=== PATIENT | male | born 1990 ===

== ENCOUNTER 2021-06-16 03:19 | Emergency (ER) | payer SELFPAY ==
[2021-06-16] MEDS ORDERED: Lidocaine 1% 30 ML SDV INJECT ONE (03:33)
[2021-06-16] MEDS ORDERED: Diphtheria,Pertussis(Acell),Tetanus Vaccine 0.5 ML Syringe IM ONE (03:33)
[2021-06-16] MEDS ORDERED: Bacitracin Oint 1 GM U/D Packet TOP ONE (03:38)
--- NOTE | 2021-06-16 04:09 | EDM.PDOC ---
ED HPI GENERAL MEDICAL PROBLEM - General Stated Complaint: CUT ON LEFT HAND Time Seen by Provider: 06/16/21 03:45 Source of Information: Reports: Patient, RN, RN Notes Reviewed History Limitations: Reports: No Limitations - History of Present Illness INITIAL COMMENTS - FREE TEXT/NARRATIVE: Milton is a 30 y/o male who presents to the ED via personal vehicle with complaints of laceration to his left hand. The patient reports he sustained the injury to his left anterior hand approximately one hour prior to his arrival to this facility while picking up a boat propeller. He denies loss of motor of sen camron function to the extremity. He has not taken any medications for this injury. The patient notes his last TDaP vaccine was in 2012. Left Hand Pain Score (Numeric/FACES): 3 - Related Data Allergies Allergy/AdvReac Type Severity Reaction Status Date / Time No Known Allergies Allergy Verified 06/16/21 03:40 Home Meds: Home Meds Dupilumab [Dupixent Pen] 300 mg SQ .Q2WKS 06/16/21 [History] Past Medical History Dermatologic History: Reports: Eczema - Past Surgical History Male Surgical History: Reports: Vasectomy Musculoskeletal Surgical History: Reports: Other (See Below) Other Musculoskeletal Surgeries/Procedures:: rt arm fx repair Social & Family History - Tobacco Use Tobacco Use Status *Q: Never Tobacco User Second Hand Smoke Exposure: No - Caffeine Use Caffeine Use: Reports: Coffee, Soda - Recreational Drug Use Recreational Drug Use: No Review of Systems - Review of Systems Review Of Systems: Comprehensive ROS is negative, except as noted in HPI. ED EXAM, GENERAL - Physical Exam Exam: See Below Exam Limited By: No Limitations General Appearance: Alert, No Apparent Distress Eye Exam: Bilateral Eye: EOMI, Normal Inspection, PERRL (3mm) Ears: Normal External Exam, Hearing Grossly Normal Nose: Normal Inspection, Normal Mucosa, No Blood Throat/Mouth: Normal Inspection, Normal Oropharynx, Normal Voice, No Airway Compromise Head: Atraumatic, Normocephalic Neck: Normal Inspection, Supple, Non-Tender, Full Range of Motion Respiratory/Chest: No Respiratory Distress, Lungs Clear, Normal Breath Sounds, No Accessory Muscle Use, Chest Non-Tender Cardiovascular: Normal Peripheral Pulses, Regular Rate, Rhythm, No Edema, No Gallop, No JVD, No Murmur, No Rub Peripheral Pulses: 2+: Radial (L), Radial (R) GI/Abdominal: Normal Bowel Sounds, Soft, Non-Tender (Male) Exam: Deferred Rectal (Males) Exam: Deferred Back Exam: Normal Inspection, Full Range of Motion Extremities: Normal Range of Motion, Normal Capillary Refill, Arm Pain (2cm laceration to left anterior hand). No: Increased Warmth, Mottled, Pallor, Redness Neurological: Alert, Oriented, CN II-XII Intact, Normal Cognition, Normal Gait, No Motor/Sensory Deficits Psychiatric: Normal Affect, Normal Mood Skin Exam: Warm, Dry, Normal Color, No Rash, Wound/Incision (2cm laceration to left anterior hand). No: Cyanosis, Ecchymosis, Erythema, Jaundice, Mottled, Pallor, Petechiae ED TRAUMA EXTREMITY PROCEDURES - Laceration/Wound Repair Left Anterior Medial Hand Lac/Wound Length In cm: 2 Appearance: Subcutaneous, Linear, Clean Distal NVT: Neuro & Vascular Intact, No Tendon Injury Anesthetic Type: Local Local Anesthesia - Lidocaine (Xylocaine): 1% Plain Local Anesthetic Volume: 5cc Skin Prep: Chlorhexidine (Hibiciens), Sterile Drape Exploration/Debridement/Repair: Wound Explored, In a Bloodless Field, Explored to Base, No Foreign Material Found, Wound Margins Revised Closed With: Sutures Suture Size: 4-0 # of Sutures: 5 Suture Type: Prolene Drain Placement: No Sterile Dressing Applied: Nurse Tetanus Status Addressed: Yes Complications: Yes Course - Vital Signs Last Recorded V/S: Last Vital Signs Temp 97.2 F 06/16/21 03:40 Pulse 88 06/16/21 03:40 Resp 18 06/16/21 03:40 BP 143/83 H 06/16/21 03:40 Pulse Ox 98 06/16/21 03:40 - Orders/Labs/Meds Orders: Active Orders 24 hr Category Date Time Status Vaccines to be Administered [RC] PER UNIT ROUTINE Care 06/16/21 03:33 Ordered Meds: Medications Discontinued Medications Generic Name Dose Route Start Last Admin Trade Name Freq PRN Reason Stop Dose Admin Bacitracin 1 dose 06/16/21 03:38 06/16/21 03:47 Bacitracin Oint 1 Gm U/D Packet TOP 06/16/21 03:39 1 dose ONETIME ONE Administration Diphtheria/Tetanus/Acell Pertussis 0.5 ml 06/16/21 03:33 06/16/21 03:41 Diphtheria,Pertussis(Acell),Tetanus Vaccine 0.5 Ml Syringe IM 06/16/21 03:34 0.5 ml .ONCE ONE Administration Lidocaine HCl 30 ml 06/16/21 03:33 06/16/21 03:41 Lidocaine 1% 30 Ml Sdv INJECT 06/16/21 03:34 5 ml ONETIME ONE Administration - Re-Assessments/Exams Free Text/Narrative Re-Assessment/Exam: 06/16/21 Laceration repaired without complication. Boostrix administered. Findings of examination reviewed with patient. Discussed supportive cares for wound healing. Patient instructed to follow up with primary care provider in [place] days for suture removal. Red flag signs and symptoms which would warrant reevaluation reviewed. Patient verbalized understanding and agreement with the plan of care. Departure - Departure Time of Disposition: 04:09 Disposition: Home, Self-Care 01 Condition: Good Clinical Impression: Laceration of left hand Qualifiers: Encounter type: initial encounter Foreign body presence: without foreign body Qualified Code(s): S61.412A - Laceration without foreign body of left hand, initial encounter - Discharge Information *PRESCRIPTION DRUG MONITORING PROGRAM REVIEWED*: Not Applicable *COPY OF PRESCRIPTION DRUG MONITORING REPORT IN PATIENT KIERA: Not Applicable Instructions: Laceration Care, Adult, [place] Forms: ED Department Discharge Additional Instructions: 1.) Follow up with your primary care provider for suture removal in seven days. 2.) Keep wound clean and dry. 3.) You may take ibuprofen (Advil/Motrin) 400mg every six hours, as pain and swelling persists. You may also take acetaminophen (Tylenol) 650mg every six hours, as pain persists. You may stagger these medications so you are receiving a dose every three hours. 4.) You may apply ice to the affected area, as swelling persists; 20 minutes on every hour. 5.) Follow up with primary care provider, or return to the emergency department, with any fever, shaking chills, palpitations, increased redness or pain, or white/oconnor wound drainage. Sepsis Event Note (ED) - Evaluation Sepsis Screening Result: No Definite Risk - Focused Exam Vital Signs: Vital Signs Temp Pulse Resp BP Pulse Ox 06/16/21 03:40 97.2 F 88 18 143/83 H 98 - My Orders Last 24 Hours: My Active Orders 06/16/21 03:33 Vaccines to be Administered [RC] PER UNIT ROUTINE - Assessment/Plan Last 24 Hours: My Active Orders 06/16/21 03:33 Vaccines to be Administered [RC] PER UNIT ROUTINE
== END 2021-06-16 04:15 | disposition home or self-care (01) ==
LOC: DL.ED 03:19
DX: S61.412A Laceration without foreign body of left hand, initial encounter (principal); Z23 Encounter for immunization; W26.8XXA Contact with other sharp object(s), not elsewhere classified, initial encounter
CPT/HCPCS: 12001; 90471; 90715; 99282; 99282-25